=== PATIENT | male | born 1960 | race Caucasian/White ===

== ENCOUNTER 2018-02-01 00:49 | Outpatient (CLI) | payer SELFPAY ==
[2018-02-01 11:24] LABS: CHOL/HDL RATIO 4.66 (0.00-4.99)
[2018-02-01 11:29] LABS: HEMOGLOBIN A1C 5.9 % (4.5-6.2)
== END 2018-02-01 23:59 | disposition home or self-care (01) ==
LOC: HW HEART 00:49
DX: Z13.6 Encounter for screening for cardiovascular disorders (principal)
CPT/HCPCS: 36415

== ENCOUNTER 2019-01-31 01:47 | Outpatient (CLI) | payer SELFPAY ==
[2019-01-31 11:58] LABS: HEMOGLOBIN A1C 5.8 % (4.5-6.2)
[2019-01-31 12:12] LABS: CHOL/HDL RATIO 5.1 (0.00-4.99)
== END 2019-01-31 23:59 | disposition home or self-care (01) ==
LOC: HW HEART 01:47
DX: Z13.6 Encounter for screening for cardiovascular disorders (principal)
CPT/HCPCS: 36415

== ENCOUNTER 2020-04-23 04:28 | Outpatient (CLI) | payer SELFPAY ==
[2020-04-23 13:18] LABS: HEMOGLOBIN A1C 5.6 % (4.5-6.2)
[2020-04-23 14:28] LABS: CHOL/HDL RATIO 5.12 (0.00-4.99)
== END 2020-04-23 23:59 | disposition home or self-care (01) ==
LOC: HW HEART 04:28
DX: Z13.6 Encounter for screening for cardiovascular disorders (principal)
CPT/HCPCS: 36415

== ENCOUNTER 2021-03-25 12:00 | Outpatient (CLI) | payer SELFPAY | END 2021-03-25 23:59 | disposition home or self-care (01) | LOC: HW VAS 12:00 | DX: Z13.6 Encounter for screening for cardiovascular disorders (principal) ==